=== PATIENT | male | born 1960 | race Asian ===

== ENCOUNTER 2023-06-14 06:00 | Day surgery (SDC) | payer MEDICAID ==
[~2023-06-14] VITALS: Ht 172.7 cm; Wt 68.5 kg
[2023-06-14] MEDS ORDERED: MIDAZOLAM HCL 5 MG/5 ML VIAL ONE (06:40)
[2023-06-14] MEDS ORDERED: MEPERIDINE 100 MG INJ. 100 MG/ML VIAL ONE (06:40)
[2023-06-14] MEDS ORDERED: SIMETHICONE 40 MG/0.6 ML ML ONE (06:40)
[2023-06-14 07:40] VITALS: O2SAT 96
[2023-06-14 14:46] VITALS: BP_SYST 113; PULSE 55; RESP 13
== END 2023-06-14 11:08 | disposition home or self-care (01) ==
LOC: SMU 06:00 → SDS 06:00
PROVIDERS: ATTEND Internal Medicine Gastroenterology
DX: Z12.11 Encounter for screening for malignant neoplasm of colon (principal); K31.A0 Gastric intestinal metaplasia, unspecified; K57.30 Diverticulosis of large intestine without perforation or abscess without bleeding; K64.8 Other hemorrhoids; K29.70 Gastritis, unspecified, without bleeding; E11.9 Type 2 diabetes mellitus without complications; Z79.82 Long term (current) use of aspirin; Z79.899 Other long term (current) drug therapy; Z86.010 Personal history of colon polyps
CPT/HCPCS: 45378; 43239; 82948; 99152; 99153; G0378; J2250; J2175